=== PATIENT | male | born 1975 | race Hispanic/Latino ===

== ENCOUNTER 2016-11-01 08:22 | Emergency (ER) | payer OTHER ==
[~2016-11-01] VITALS: Ht 170.2 cm; Wt 96.0 kg
[~2016-11-01 08:22] MED LIST: AMLODIPINE BESY10 MG PO; Aspirin PO; CLONAZEPAM0.5 MG PO; Cardizem CD,Cartia X PO; Habitrol,Nicoderm CQ TD; KLONOPIN0.5 M1 PO; MOBIC15 MG PO; MUCINEX D ER T1 EACH PO; NAPROSYN500 MG PO; NOHOMEMEDS; NORVASC10 MG PO; OMEPRAZOLE40 M1 PO; PREDNISONE20 MG PO; TESSALON PERLE100 MG PO; Xanax PO
[2016-11-01 09:28] LABS: EOSINOPHIL (%) 0.3 % (0-5); HEMATOCRIT 49.6 % (38.0-50.0); IMMATURE GRANULOCYTE (%) 0.2 % (0.0-0.7); INSTRUMENT ABS NEUTROPHIL CT 6.9 K/uL; LYMPHOCYTE COUNT 1.3 K/uL (1.0-2.8); MCH 28.6 PG (29.0-34.0); MCHC 33.5 G/DL (30.0-36.0); MCV 85.5 FL (86-99); MEAN PLAT.VOLUME 9.5 uM^3 (9.0-12.4); MONOCYTE (%) 6.2 % (3-12); MONOCYTE COUNT 0.6 K/uL (0-0.8); NEUTROPHIL (%) 78.1 % (45-76); NEUTROPHIL COUNT 6.9 K/uL (1.8-6.4); PLATELET COUNT 259 K/uL (156-360); RBC DIS.WIDTH-CV 13.4 % (11.8-14.6); RBC DIS.WIDTH-SD 42.2 % (39-53); WHITE BLOOD COUNT 8.9 K/uL (4.1-10.2)
[2016-11-01 09:38] LABS: CHLORIDE 105 mEq/L (99-109); POTASSIUM 3.6 mEq/L (3.7-5.4); SODIUM 141 mEq/L (136-147)
[2016-11-01 09:39] LABS: GLUCOSE 113 mg/dL (70-99)
[2016-11-01 09:41] LABS: ANION GAP 10 MEQ/L (2-14)
[2016-11-01 09:43] LABS: GFR ESTIMATE (CALCULATED) > 59 mL/min/
[2016-11-01 09:44] LABS: UREA NITROGEN (BUN) 12 mg/dL (9-23)
[2016-11-01 10:03] LABS: ADD MIUA? NO; BILIRUBIN NEGATIVE; BLOOD NEGATIVE; COLOR YELLOW ((YELLOW)); GLUCOSE (STRIP) NEGATIVE; KETONES NEGATIVE; LEUKOCYTES NEGATIVE; NITRITE NEGATIVE; PROTEIN (STRIP) NEGATIVE; SPECIFIC GRAVITY 1.011 (1.000-1.030); UROBILINOGEN 0.2 MG/DL (0.2-1.0)
[2016-11-01] MEDS ORDERED: FLEXERIL10 MG PO ×3 (10:57→11:09)
[2016-11-01] MEDS ORDERED: TYLENOL WITH C1 EACH PO (10:57)
[2016-11-01 11:20] VITALS: BP 141/92
== END 2016-11-01 11:20 | disposition home or self-care (01) ==
LOC: EME 08:22
PROVIDERS: Emergency Medicine
DX: R10.9 Unspecified abdominal pain (principal); M54.9 Dorsalgia, unspecified; I10 Essential (primary) hypertension; F17.200 Nicotine dependence, unspecified, uncomplicated
CPT/HCPCS: 74176; 80048; 81003; 85025; 99281; 99285; J1885; J7030

== ENCOUNTER 2017-05-15 07:04 | Emergency (ER) | payer OTHER ==
[~2017-05-15] VITALS: Ht 170.2 cm; Wt 104.3 kg
[~2017-05-15 07:04] MED LIST changes: +FLEXERIL10 MG PO; +TYLENOL WITH C1 EACH PO
[2017-05-15 08:10] LABS: HEMATOCRIT 51.4 % (38.0-50.0); MCH 28.8 PG (29.0-34.0); MCHC 33.7 G/DL (30.0-36.0); MCV 85.7 FL (86-99); MEAN PLAT.VOLUME 9.5 uM^3 (9.0-12.4); PLATELET COUNT 271 K/uL (156-360); RBC DIS.WIDTH-CV 13.9 % (11.8-14.6); WHITE BLOOD COUNT 11.9 K/uL (4.1-10.2)
[2017-05-15 08:48] LABS: TROP-I INTERPRETATION NEGATIVE; TROPONIN-I < 0.01 ng/mL (0.0-0.30)
[2017-05-15 08:49] LABS: ALKALINE PHOSPHATASE 60 IU/L (3-129); ANION GAP 12 MEQ/L (2-14); CHLORIDE 103 MEQ/L (99-109); GFR ESTIMATE (CALCULATED) > 59 mL/min/; GLUCOSE 120 mg/dL (70-99); POTASSIUM 3.6 MEQ/L (3.7-5.4); SAMPLE HEMOLYSIS CHECK 0; SAMPLE ICTERIC CHECK 0; SAMPLE LIPEMIA CHECK 0; SODIUM 142 MEQ/L (136-147); TOTAL BILIRUBIN 0.6 MG/DL (0.0-1.0); UREA NITROGEN (BUN) 16 mg/dL (9-23)
[2017-05-15 10:35] LABS: TROP-I INTERPRETATION NEGATIVE; TROPONIN-I < 0.01 ng/mL (0.0-0.30)
[2017-05-15] MEDS ORDERED: NORVASC5 MG PO (10:41)
[2017-05-15 10:56] VITALS: BP 138/90
== END 2017-05-15 10:58 | disposition home or self-care (01) ==
LOC: EME 07:04
PROVIDERS: Nurse Practitioner Family
DX: I10 Essential (primary) hypertension (principal); F41.9 Anxiety disorder, unspecified; F17.200 Nicotine dependence, unspecified, uncomplicated
CPT/HCPCS: 71020; 80053; 84484; 85027; 93005; 99281; 99285